=== PATIENT | male | born 1965 | race American Indian/Alaskan Native ===

== ENCOUNTER 2022-03-21 06:30 | Day surgery (SDC) | payer BC ==
[~2022-03-21 06:30] MED LIST: SODIUM CHLORIDE 0.9% 1000 ML 1,000 ML IV SCH
[2022-03-21] MEDS ORDERED: SODIUM CHLORIDE 0.9% 1000 ML 1,000 ML IV SCH (07:00)
[2022-03-21] MEDS ORDERED: WATER FOR IRRIG STERILE 1,000 ML BOTTLE ONE (07:01)
[2022-03-21] MEDS ORDERED: WATER FOR IRRIG STERILE 250 ML BOTTLE IR ONE (07:01)
--- NOTE | 2022-03-21 07:27 | Anesthesia Day of Surgery ---
Anesthesia Day of Surgery - Day of Surgery Patient Examined: Yes Patient H&P Reviewed: Yes Patient is NPO: Yes
--- NOTE | 2022-03-21 07:29 | Anesthesia Consultation ---
Anesthesia Consult and Med Hx Date of service: 03/21/22 - Airway Anesthetic Teeth Evaluation: Good ROM Head & Neck: Adequate Mental/Hyoid Distance: Adequate Mallampati Class: Class I Intubation Access Assessment: Good - Pulmonary Exam CTA: Yes - Cardiac Exam Cardiac Exam: RRR - Pre-Operative Health Status ASA Pre-Surgery Classification: ASA2 Proposed Anesthetic Plan: MAC - Pulmonary Hx Smoking: Yes (cigars) - Cardiovascular System Hx Hypertension: Yes - Gastrointestinal Hx Ulcer: Yes (PUD) - Endocrine Hx Non-Insulin Dependent Diabetes: Yes - Other Systems Hx Alcohol Use: Yes (socially)
[2022-03-21] MEDS ORDERED: propofoL 200 MG/20 ML VIAL IV ONE (07:40)
[2022-03-21] MEDS ORDERED: MIDAZOLAM 2 MG/2 ML INJ ONE (07:40)
--- NOTE | 2022-03-21 09:42 | Procedure Note ---
Date of procedure: 03/21/22 Pre-op diagnosis: Dyspepsia/ Colon Polyp Screening Post-op diagnosis: other (Mild to Moderate Erosive Esophagitis/ R/O Eosinophilic Esophagitis/ Gastritis/ S/P Fundoplication/ R/O Celiac Disease/Solitry,Small transverse Colon Polyp/Diverticular disease (left, Colon and Proximal Colon)/ Solitary, Rectal AVM (treated with APC laser)) Procedure: EGD with Biopsy/ Colonoscopy with Cold Biopsy and APC laser use Anesthesia: MAC Surgeon: JANET CINTRON Pathology: list Specimen disposition: to lab Condition: stable Disposition: same day (Treat with PPI,Bentyl. OTC Probiotic and encourage fiber intake. Avoid aspirin and NSAID for 5 days; otherwise resume previous medication and F/U in 1 to 2 weeks ([phone]).)
--- NOTE | 2022-03-21 09:52 | Operative Report ---
DATE OF SURGERY: 03/21/2022 PROCEDURE: EGD. INDICATIONS: The patient is a 56-year-old -[place] gentleman originally from the [facility] who has been having some dyspeptic symptoms. EGD was done to assess for the problem. He has a prior history of a fundoplication. DESCRIPTION OF PROCEDURE: Procedure was done after getting informed consent with MAC anesthesia, the instrument was passed through the hypopharynx into the esophagus, which showed [id number] distal erosive esophagitis. Biopsy was done from the distal esophagus to assess for the severity of the erosive esophagitis as well as from the mid esophagus to rule out for eosinophilic esophagitis. The stomach did not show any hiatal hernia on the retroverted view. There was some gastritis present, but no ulcers noted within the gastric lumen. The pylorus was patent. The duodenum in the first and second portion appeared normal. Biopsy was done from the second part to rule out for possible celiac disease. Additional biopsy was done from the gastric antrum, gastric body and angular incisure to rule out for H. pylori and atrophic gastritis. There is minimal bleeding associated with the procedure. No complications associated with the procedure. ASSESSMENT: Dyspepsia, [id number] distal erosive esophagitis, rule out eosinophilic esophagitis, gastritis, rule out celiac disease. PLAN: To treat the patient with PPI. Also, treat the patient with Bentyl on a p.r.n. basis for any abdominal pain and probiotics and encouraged the patient to take fiber supplements. The patient will be asked to avoid aspirin and aspirin-related products for the next few days and follow up in the office in 1-2 weeks' time. Procedure was done in the GI lab with assistance of the GI lab team, which included the GI nurse, building services technician and the assistance of Anesthesia. TID: [id number] RECEIPT: [id number] ARBEN/PIEDAD
--- NOTE | 2022-03-21 10:05 | Operative Report ---
DATE OF SURGERY: 03/21/2022 PROCEDURE: Colonoscopy with cold biopsy and APC laser used. INDICATIONS: This is a 56-year-old -[place] gentleman originally from the [facility] who had an EGD done prior to the colonoscopy. EGD had shown presence of mild to moderate erosive esophagitis and gastritis, but no peptic ulcer disease. He is status post fundoplication. Colonoscopy was done as part of colon polyp screening. DESCRIPTION OF PROCEDURE: Procedure was done after getting informed consent with MAC anesthesia. Initial rectal examination was unremarkable. The instrument was passed through the rectum onto the cecum, which was identified with ileocecal valve and appendiceal orifice. The terminal ileum was briefly intubated. There were a few diverticula noted in the proximal colon. No other pathology was noted in the proximal colon, which included the cecum and ascending colon. The transverse colon showed normal mucosa except in the distal transverse colon, there was a small 7-8 mm polyp noted, which was sessile and removed by cold biopsy. Photodocumentation was also obtained. There was moderate diverticular disease noted in the left colon, and in the rectum, there was a solitary small rectal AVM noted that was burned by using the APC laser. No internal hemorrhoids were noted on the retroverted view. There was minimal bleeding associated with the procedure. No complications associated with the procedure. ASSESSMENT: Colon polyp screening, solitary distal transverse colon polyp removed by cold biopsy. Solitary small rectal AVM that was burned using the APC laser. Moderate left colon diverticular disease. No internal hemorrhoids noted. The patient will be asked to avoid aspirin and aspirin-related products for the next few days, otherwise resume previous medication. The patient will be encouraged to take fiber supplements as well as probiotics treated with Bentyl on a p.r.n. basis for abdominal pain and PPI because of the EGD findings of esophagitis and gastritis. The patient will be asked to follow up in the office in 1-2 weeks' time. Procedure was done in the GI lab with assistance of the GI lab team, which included the GI nurse, animal care technician and with assistance of anesthesia. TID: [id number] RECEIPT: [id number] ARBEN/PIEDAD
[2022-03-21 11:47] VITALS: BP 103/61
--- NOTE | 2022-03-21 14:14 | Post Anesthesia Evaluation ---
- Post Anesthesia Evaluation Patient Participated: Yes Airway Patent: Yes Stable Respiratory Function: Yes Nausea/Vomiting: No Temp > 96.8F: Yes Pain Manageable: Yes Adequeate Hydration: Yes Anesthesia Complications: No Block Receding Appropriately: Not Applicable Patient on Ventilator: No
== END 2022-03-21 10:10 | disposition home or self-care (01) ==
LOC: GIO 06:30
DX: Z12.11 Encounter for screening for malignant neoplasm of colon (principal); K27.9 Peptic ulcer, site unspecified, unspecified as acute or chronic, without hemorrhage or perforation; R10.13 Epigastric pain; K29.70 Gastritis, unspecified, without bleeding; K57.30 Diverticulosis of large intestine without perforation or abscess without bleeding; K20.90 Esophagitis, unspecified without bleeding; F17.210 Nicotine dependence, cigarettes, uncomplicated; I10 Essential (primary) hypertension; K44.9 Diaphragmatic hernia without obstruction or gangrene; E11.9 Type 2 diabetes mellitus without complications; K31.89 Other diseases of stomach and duodenum; K63.89 Other specified diseases of intestine; Z88.8 Allergy status to other drugs, medicaments and biological substances; Z79.899 Other long term (current) drug therapy; Z72.89 Other problems related to lifestyle
CPT/HCPCS: 43239; 45380; 45388; 82962; 88305; 88342; J2250; J2704; J7030